=== PATIENT | male | born 1960 | race Caucasian/White ===

== ENCOUNTER → 2022-04-21 | Outpatient (CLI) | payer OTHER | LOC: ORTHO 09:40 | PROVIDERS: ATTEND Orthopaedic Surgery | DX: M17.11 Unilateral primary osteoarthritis, right knee (principal) | CPT/HCPCS: 99203 ==

== ENCOUNTER → 2022-05-12 | Outpatient (CLI) | payer SELFPAY ==
[~2022-05-12] VITALS: Ht 165.1 cm; Wt 68.2 kg
== END ==
LOC: PREOP 08:10
PROVIDERS: ATTEND Orthopaedic Surgery
DX: Z01.810 Encounter for preprocedural cardiovascular examination (principal); Z01.812 Encounter for preprocedural laboratory examination; M17.11 Unilateral primary osteoarthritis, right knee
CPT/HCPCS: 87081; 93005

== ENCOUNTER → 2022-05-12 | Outpatient (CLI) | payer OTHER ==
[2022-05-12 09:26] LABS: BILIRUBIN,URINE NEGATIVE (NEGATIVE); CLARITY,URINE CLEAR; COLOR,URINE YELLOW; GLUCOSE, URINE (UA) NEGATIVE (NEGATIVE); KETONES,URINE NEGATIVE (NEGATIVE); LEUKOCYTE ESTERASE ,URINE NEGATIVE (NEGATIVE); NITRITE,URINE NEGATIVE (NEGATIVE); PROTEIN,URINE NEGATIVE (NEGATIVE)
[2022-05-12 09:32] LABS: BASOPHILS % (AUTO) 1 % (0-10); EOSINOPHILS # (AUTO) 0.1 10^3/uL (0.0-0.3); EOSINOPHILS % (AUTO) 1 % (0-10); HEMATOCRIT 41 % (40-54); HEMOGLOBIN 14.1 g/dL (13.3-17.7); LYMPHOCYTES # (AUTO) 2.3 10^3/uL (1.0-4.0); LYMPHOCYTES % (AUTO) 29 % (12-44); MEAN CORPUSCULAR HEMOGLOBIN 31 pg (25-34); MEAN CORPUSCULAR HGB CONC 34 g/dL (32-36); MEAN CORPUSCULAR VOLUME 90 fL (80-99); MEAN PLATELET VOLUME 9.9 fL (9.0-12.2); MONOCYTES # (AUTO) 0.7 10^3/uL (0.0-1.0); MONOCYTES % (AUTO) 9 % (0-12); NEUTROPHILS # (AUTO) 4.7 10^3/uL (1.8-7.8); NEUTROPHILS % (AUTO) 60 % (42-75); PLATELET COUNT 202 10^3/uL (130-400); WHITE BLOOD COUNT 7.8 10^3/uL (4.3-11.0)
[2022-05-12 09:49] LABS: BACTERIA,URINE NEGATIVE /HPF
[2022-05-12 09:53] LABS: CALCIUM 9.1 MG/DL (8.5-10.1); CREATININE SERUM 0.82 MG/DL (0.60-1.30); POTASSIUM 3.9 MMOL/L (3.6-5.0)
--- NOTE | 2022-05-12 13:34 | Diagnostic Imaging Report ---
Indication: Preop for knee surgery PA and lateral chest obtained at 0934 a.m. Heart and mediastinal silhouette are normal appearance. The lungs are clear. There is no pneumothorax or pleural fluid. IMPRESSION: Negative chest. Dictated by: Dictated on workstation # [id number]
--- NOTE | 2022-05-12 14:41 | Diagnostic Imaging Report ---
Indication: Osteoarthritis AP and lateral views of the right knee are obtained. There is no acute fracture. There is advanced degenerative change of the medial compartment of the right knee with severe joint space narrowing and osteophyte formation. There is prominent patellofemoral spurring and joint space there. The lateral compartment appears preserved. There is no joint effusion. IMPRESSION: Advanced degenerative changes of the right knee as above with no acute abnormality. Findings are most severe in the medial compartment. Dictated by: Dictated on workstation # [id number]
== END ==
LOC: ORTHO 08:54
PROVIDERS: ATTEND Orthopaedic Surgery
DX: Z01.818 Encounter for other preprocedural examination (principal); M17.11 Unilateral primary osteoarthritis, right knee
CPT/HCPCS: 36415; 71046; 73560; 80048; 81000; 85025

== ENCOUNTER 2022-05-18 06:58 | Day surgery (SDC) | payer OTHER ==
[2022-05-18] VITALS (10 sets, daily range): BP systolic 91–133; BP diastolic 67–96
[~2022-05-18] VITALS: Ht 165.1 cm; Wt 68.2 kg
[2022-05-18] MEDS ORDERED: HYDROmorphone 2 MG/ML VIAL (DILAUDID) IV ONE (07:15)
[2022-05-18] MEDS ORDERED: morphine INJ 10 MG/ML 1ML (SYR OR VIAL) IVP ONE (07:15)
[2022-05-18] MEDS ORDERED: ceFAZolin INJECTION 1,000 MG in NS (IVPB) 50 ML IV ONE (07:15)
[2022-05-18] MEDS ORDERED: ONDANSETRON 4 MG/2 ML (SDV) Z0FRAN IVP PRN (07:15)
[2022-05-18] MEDS ORDERED: PROPOFOL INJECTION 50 ML IV ONE (07:18)
[2022-05-18] MEDS ORDERED: MIDAZOLAM 2 MG/2 ML (VERSED) VIAL ONE ×2 (07:23→09:23)
--- NOTE | 2022-05-18 07:24 | Progress Note-Pre Operative ---
Pre-Operative Progress Note Date of Available H&P: Apr 21, 2022 Date H&P Reviewed: May 18, 2022 Time H&P Reviewed: 07:15 History & Physical: H&P Reviewed, Patient Examed, No changes noted Pre-Operative Diagnosis: Right Knee Primary Osteoarthritis MIKE MAK MD May 18, 2022 07:24
[2022-05-18] MEDS: LACTATED RINGERS 1,000 ML IV PRN ×2 (07:31→08:01)
[2022-05-18] MEDS ORDERED: fentaNYL INJ 100 MCG/2 ML AMP ONE (07:33)
[2022-05-18] MEDS ORDERED: SODIUM CHLORIDE 0.9% IRRIGATIO 150 ML, TRANEXAMIC ACID INJECTION 3,000 MG IR ONE ×2 (08:00)
[2022-05-18] MEDS ORDERED: proPOfol 200 MG/20 ML (DIPRIVAN) VIAL IV ONE (09:18)
--- NOTE | 2022-05-18 10:50 | Operative Report - Ortho ---
Operative Report Surgeon (s)/Crown Blocker (s) Surgeon MIKE MAK MD Crown Blocker n/a Pre-Operative Diagnosis Right Knee Primary Osteoarthritis Post-Operative Diagnosis same Operative Report Date of Procedure: May 18, 2022 Name of Procedure Performed: Right Total Knee Arthroplasty Description & Findings After obtaining informed consent and marking the patient in the preoperative holding area, the patient did receive IV antibiotics. Patient was taken to the operating room and anesthesia was induced. Surgical timeout was taken. The right lower extremity was prepped and draped in the usual sterile fashion. Incision was made and carried down to fascia. Arthrotomy was performed on the medial side of the patella. Patella was retracted laterally and knee was flexed. Found to have circumferential osteophtye around the distal femur as well as exposed bone in the medial compartment. Hole was made in the distal femur for the intramedullary distal femoral cutting guide. Resection was made then the femur was sized as a 5. 4-in-1 block for a size [address]. Anterior cut was made and there was no notch. Posterior cut was made followed by the chamfers. Box cut was performed. Lug holes were drilled. Attention was turned to the tibial side, extramedullary tibial guide was put into place and aligned with the tibial crest. It was set to take 2 mm off of the affected medial side. Drop shira was used to confirm alignment. Resection was made and was parallel to the joint line. Tibial bone block was removed. [place]ina ladies' locker room attendant was put into place and the menisci and posterior osteophytes were removed. The knee was trialed with a size 5 femur and a size 5 tibia with a 9 mm poly trial. It was found to come out to full extension and flexed beyond 120 degrees. It was stable to varus and valgus stress throughout its range of motion. This was accepted. Knee was brought out into extension and the patella was prepared for an inset patellar button. Osteophytes were removed from around the perimeter of the patella. Patellar trial was put into place and tracked well. Trial implants were removed. Tibial tray was pinned and punched. The cut bone surfaces were lavaged with pulsatile normal saline. Implants were opened and assembled on the back table. Cement was mixed. Cement was applied to the cut bone surface as well as the implant surface. A size 5 tibial component was impacted into placed and excess cement was removed using a [place]. A size 5 femoral component was impacted into place and excess cement was removed using a [place]us. Tibial tray was lavaged with saline. A 9 mm thick polyethylene component was locked into placed and the locking mechanism was checked. Knee was brought into extension. Patellar component was cemented in to place and excess cement was removed from the perimeter. The knee was irrigated with normal saline. Irrigation was removed and tranexamic acid was placed. A dilute betadine soak was performed followed by irrigation of the knee. Once the cement had set, the knee was once again trialed; found to come to full extension, flexed beyond 120 degrees, and was stable to varus and valgus stress. Further tranexamic acid was applied for hemostasis. Tourniquet was dropped and electrocautery was used for further hemostasis. Fascial layer was closed with #2 Stratafix. The subcutaneous layer was closed with 2-0 Vicryl. The skin was closed with 3-0 v-loc. Wound was dressed with steri-strips, xeroform, 4x4s, ABD, webril, and AJ wrap. Patient tolerated the procedure well and was stable to the recovery room. Anesthesia Type Spinal Estimated Blood Loss 150 mL Specimen(s) collected/removed None MIKE MAK MD May 18, 2022 10:49
[2022-05-18] MEDS ORDERED: BISACODYL 5 MG (DULCOLAX) TABLET PO PRN (11:00)
[2022-05-18] MEDS ORDERED: ONDANSETRON 4 MG/2 ML (SDV) Z0FRAN IV PRN (11:00)
[2022-05-18] MEDS ORDERED: ACETAMINOPHEN 500 MG TAB (TYLENOL) PO PRN (11:00)
[2022-05-18] MEDS ORDERED: morphine INJ 4 MG/ML 1 ML (VIAL/SYRINGE) IVP PRN (11:00)
[2022-05-18] MEDS ORDERED: MILK OF MAGNESIA 400 MG/5 ML 30 ML UDC PO PRN (11:00)
--- NOTE | 2022-05-18 11:50 | Diagnostic Imaging Report ---
CLINICAL INDICATION: Postop arthroplasty of the right knee. EXAM: X-ray of the right knee, AP and cross-table lateral views. COMPARISON: X-ray of the right knee dated 05/12/2022. FINDINGS: There is interval placement of right total knee arthroplasty with components in good position. There is air overlying the right knee joint space region and soft tissue. There is a compressive device overlying the right knee region. IMPRESSION: Interval postoperative changes with right total knee arthroplasty with components in good position. There is no unexpected radiodense foreign object. Dictated by: Dictated on workstation # [id number]
--- NOTE | 2022-05-18 13:23 | Physical Therapy Evaluation ---
PT Evaluation-General Medical Diagnosis Admission Date May 18, 2022 at 07:00 Medical Diagnosis: right knee osteoarthritis Onset Date: May 18, 2022 Therapy Diagnosis Therapy Diagnosis: debility Precautions Precautions/Isolations: Standard Precautions Weight Bear Status Right Lower Extremity: Right Weight Bearing/Tolerated Left Lower Extremity: Left Full Weight Bearing Referral Physician: Cole Reason for Referral: Evaluation/Treatment Medical History Current History s/p elective right TKR Reviewed History: Yes Social History Home: Single Level Current Living Status: Spouse Entry Into Home: Level Entry Prior Prior Level of Function SCALE: Activities may be completed with or without assistive devices. 8-Xhnkjqzshj-afadccq completes the activity by him/herself with no assistance from a helper. 5-Set-up or Clean-up Assistance-helper sets up or cleans up; patient completes activity. [place] assists only prior to or following the activity. 4-Supervision or Touching Assistance-helper provides verbal cues and/or touching/steadying and/or contact guard assistance as patient completes activity. Assistance may be provided throughout the activity or intermittently. 3-Partial/Moderate Assistance-helper does LESS THAN HALF the effort. [place] lifts, holds or supports trunk or limbs, but provides less than half the effort. 2-Substantial/Maximal Assistance-helper does MORE THAN HALF the effort. [place] lifts or holds trunk or limbs and provides more than half the effort. 3-Lmxedboxp-yqbhic does ALL the effort. Patient does none of the effort to complete the activity. Or, the assistance of 2 or more helpers is required for the patient to complete the activity. If activity was not attempted, code reason: 7-Patient Refused. 9-Not Applicable-not attempted and the patient did not perform the activity before the current illness, exacerbation or injury. 10-Not Attempted due to Environmental Limitations-(lack of equipment, weather restraints, etc.). 88-Not Attempted due to Medical Conditions or Safety Concerns. Bed Mobility: 6 Transfers (B,C,W/C): 6 Gait: 6 Stairs: 6 Indoor Mobility (Ambulation): Independent Stairs: Independent Prior Devices Use: None PT Evaluation-Current Subjective Patient agrees to PT. Pain Numeric Pain Scale: 5-Moderate Pain Location: Right Location Body Site: Knee Pain Description: Acute Objective Patient Orientation: Normal For Age Attachments: IV ROM/Strength ROM Lower Extremities right knee flexion 80 degrees AROM/5 degrees extension left LE WFL Strength Lower Extremities left LE 5/5 grossly ; right LE 3+/5 grossly Integumentary/Posture Bowel Incontinence: No Bladder Incontinence: No Posture WFL Neuromuscular (Tone, Coordination, Reflexes) grossly intact Sensory Vision: Functional Hearing: Functional Transfers Lying to Sitting/Side of Bed(Q: 6 Sit to Stand (QC): 4 Chair/Bsx-rt-Pnkrf Xfer(QC): 4 Gait Mode of Locomotion: Walk Anticipated Mode of Locomotion: Walk Walk 10 feet (QC): 4 Gait Assistive Device: FWW Balance Sitting Static: Normal Sitting Dynamic: Normal Standing Static: Fair Standing Dynamic: Fair Assessment/Needs Patient will benefit from skilled PT to address functional strength and mobility to improve current LOF. Patient lives independently with spouse and kids. Rehab Potential: Good PT Cattle Sticker Goals Cattle Sticker Goals PT Cattle Sticker Goals Time Frame: May 23, 2022 Roll Left & Right (QC): 6 Sit to Lying (QC): 6 Lying-Sitting on Side/Bed(QC): 6 Sit to Stand (QC): 6 Chair/Pry-pq-Vdzmb Xfer(QC): 6 Toilet Transfer (QC): 6 Car Transfer (QC): 6 Does the Patient Walk: Yes Walk 10 feet (QC): 6 Walk 50ft with 2 Turns (QC): 6 Walk 150 ft (QC): 6 PT Plan Treatment/Plan Treatment Plan: Continue Plan of Care Treatment Plan: Education, Functional Activity Bernabe, Functional Strength, Gait, Safety, Therapeutic Exercise, Transfers Treatment Duration: May 23, 2022 Frequency: 11 times per week Estimated Hrs Per Day: .5 hour per day Patient and/or Family Agrees t: Yes Time Time In: 1258 Time Out: 1312 DATE: May 18, 2022 Total Billed Treatment Time: 14 Total Billed Treatment 1 visit EVMod 14 min NICOLA KELLEY PT May 18, 2022 13:23
[2022-05-18] MEDS: NS IV 1000 ML 1,000 ML IV SCH ×2 (13:38→21:27)
[2022-05-18] MEDS: ASPIRIN E.C. 81 MG (ECOTRIN) TAB PO SCH (17:42)
[2022-05-18] MEDS: DOCUSATE SODIUM 100 MG (COLACE) CAP PO SCH (20:24)
[2022-05-18] MEDS: ceFAZolin INJECTION 1,000 MG in NS (IVPB) 50 ML IV SCH (20:24)
[2022-05-18] MEDS: CELECOXIB 100 MG (CeleBREX) CAP PO SCH (20:24)
[2022-05-19] VITALS (7 sets, daily range): BP systolic 117–158; BP diastolic 75–92
[2022-05-19] MEDS: MULTIVIT W/MINERALS TAB (THERAGRAN M) PO SCH (06:00)
[2022-05-19] MEDS: ceFAZolin INJECTION 1,000 MG in NS (IVPB) 50 ML IV SCH (06:00)
[2022-05-19 06:42] LABS: HEMOGLOBIN 12.8 g/dL (13.3-17.7)
[2022-05-19] MEDS: ASPIRIN E.C. 81 MG (ECOTRIN) TAB PO SCH ×2 (08:42→17:31)
[2022-05-19] MEDS: DOCUSATE SODIUM 100 MG (COLACE) CAP PO SCH ×2 (08:42→20:37)
[2022-05-19] MEDS: CELECOXIB 100 MG (CeleBREX) CAP PO SCH ×2 (08:42→20:38)
--- NOTE | 2022-05-19 08:58 | Progress Note - Ortho ---
Progress Note Subjective Date of Exam 05/19/22 Chief Complaint POD #1 R TKA HPI/Events since last exam Doing well, some issues with tightness/pain, mobilizing well with therapy Review of Systems - Allergies: Coded Allergies: No Known Drug Allergies (Unverified , 05/12/22) Home Meds No Active Prescriptions or Reported Meds Objective Exam Right Knee: Dressing C/D/I, +DF of ankle, no s/s of DVT Vital Signs Vital Signs Date Time Temp Pulse Resp B/P (MAP) Pulse Ox O2 Delivery O2 Flow Rate FiO2 05/19/22 07:35 37.1 72 18 158/92 (114) 95 Room Air 05/19/22 03:44 37.1 78 20 117/75 (89) 96 Room Air 05/18/22 23:56 37.3 72 20 106/70 (82) 95 Room Air 05/18/22 20:20 Room Air 05/18/22 20:09 37.5 76 16 104/70 (81) 93 Room Air 05/18/22 16:15 36.3 74 16 111/73 (86) 96 Room Air 05/18/22 11:35 Room Air 05/18/22 11:35 Room Air 05/18/22 11:30 Room Air 05/18/22 11:30 36.5 20 118/81 (93) 96 Room Air 05/18/22 11:20 20 110/84 (93) 100 Room Air 05/18/22 11:15 Room Air 05/18/22 11:10 20 112/79 (90) 97 Room Air 05/18/22 11:00 Room Air 05/18/22 11:00 20 101/81 (88) 100 Room Air 05/18/22 10:50 20 96/73 (81) 100 Nasal Cannula 2.00 05/18/22 10:45 Nasal Cannula 2.00 05/18/22 10:40 36.5 20 91/67 (75) 100 Nasal Cannula 2.00 05/18/22 10:40 Nasal Cannula 2.00 I & O 05/19/22 07:00 Intake Total 2640 ml Output Total 1900 ml Balance 740 ml Lab Results Laboratory Tests 05/19/22 06:00: Hemoglobin 12.8L, Hematocrit 37L Microbiology 05/18/22 MRSA Screen - Final, Complete MRSA not isolated Imaging 2 postop views of the right knee dated 05/18/22 were reviewed from PACS and demonstrated total knee with components in good position, some residual osteophyte on medial side Assessment and Plan Assessment Right Knee Primary Osteoarthritis s/p R TKA Problem List Right Knee Primary Osteoarthritis s/p R TKA Plan PT/OT DVT Prophylaxis Pain control--will add muscle relaxant Home tomorrow Final Diagonsis Right Knee Primary Osteoarthritis s/p R TKA Level of the visit: Level 3 (postop global) MIKE MAK MD May 19, 2022 08:58
--- NOTE | 2022-05-19 10:30 | Physical Therapy Daily Note ---
PT Daily Note-Current Subjective Patient is up independently in room. Spouse present. Pain Numeric Pain Scale: 5-Moderate Pain Location: Right Location Body Site: Knee Pain Description: Acute Section J - Health Conditions 1. Rarely or not at all 2. Occasionally 3. Frequently 4. Almost constantly 8. Unable to answer Pain Effect on Sleep: 2 Pain Interference with Therapy: 2 Pain Interference w/Day-to-Day: 2 Mental Status Patient Orientation: Normal For Age Transfers SCALE: Activities may be completed with or without assistive devices. 0-Irxgdunume-jujdgau completes the activity by him/herself with no assistance from a helper. 5-Set-up or Clean-up Assistance-helper sets up or cleans up; patient completes activity. [place] assists only prior to or following the activity. 4-Supervision or Touching Assistance-helper provides verbal cues and/or touchi ng/steadying and/or contact guard assistance as patient completes activity. Assistance may be provided throughout the activity or intermittently. 3-Partial/Moderate Assistance-helper does LESS THAN HALF the effort. [place] lifts, holds or supports trunk or limbs, but provides less than half the effort. 2-Substantial/Maximal Assistance-helper does MORE THAN HALF the effort. [place] lifts or holds trunk or limbs and provides more than half the effort. 5-Xtxzerxgy-pfkqpg does ALL the effort. Patient does none of the effort to complete the activity. Or, the assistance of 2 or more helpers is required for the patient to complete the activity. If activity was not attempted, code reason: 7-Patient Refused. 9-Not Applicable-not attempted and the patient did not perform the activity before the current illness, exacerbation or injury. 10-Not Attempted due to Environmental Limitations-(lack of equipment, weather restraints, etc.). 88-Not Attempted due to Medical Conditions or Safety Concerns. Sit to Lying (QC): 6 Lying to Sitting/Side of Bed(Q: 6 Sit to Stand (QC): 6 Chair/Mse-dk-Izcrj Xfer(QC): 6 Toilet Transfer (QC): 6 Weight Bearing Right Lower Extremity: Right Weight Bearing/Tolerated Left Lower Extremity: Left Full Weight Bearing Gait Training Distance: >300' Walk 10 feet (QC): 6 Walk 50 ft with 2 Turns(QC): 6 Walk 150 ft (QC): 6 Gait Assistive Device: FWW VC's for gait sequence and heel-toe reciprocal pattern Exercises Supine Ex: Ankle pumps, Quad Set, Heel Slides, Straight leg raise Supine Reps: 12 Seated Therapy Exercises: Long arc quads Seated Reps: 15 Assessment PT instructed patient, family and nursing for patient to be ad sally in hallway. All voice understanding. Plan dismissal tomorrow after PT per physician. PT Mcc Goals Mcc Goals PT Mcc Goals Time Frame: May 23, 2022 Roll Left & Right (QC): 6 Sit to Lying (QC): 6 Lying-Sitting on Side/Bed(QC): 6 Sit to Stand (QC): 6 Chair/Jej-th-Creck Xfer(QC): 6 Toilet Transfer (QC): 6 Car Transfer (QC): 6 Does the Patient Walk: Yes Walk 10 feet (QC): 6 Walk 50ft with 2 Turns (QC): 6 Walk 150 ft (QC): 6 PT Plan Treatment/Plan Treatment Plan: Continue Plan of Care Treatment Plan: Education, Functional Activity Bernabe, Functional Strength, Gait, Safety, Therapeutic Exercise, Transfers Treatment Duration: May 23, 2022 Frequency: 11 times per week Estimated Hrs Per Day: .5 hour per day Patient and/or Family Agrees t: Yes Time Time In: 818 Time Out: 841 DATE: May 19, 2022 Total Billed Treatment Time: 23 Total Billed Treatment 1 visit EX 14 min GT 9 min NICOLA KELLEY PT May 19, 2022 10:30
--- NOTE | 2022-05-19 11:19 | Occ Therapy Progress Note ---
Therapy Progress Note OT orders received and chart reviewed. OT visited with pt about purpose/benefit of OT, he verbalized understanding. Per PT, pt is currently up ad sally in his room. Pt indicates he has completed toileting independently and has no concerns with his ability to complete ADLs upon returning home. If he has any difficulties, he has family who can assist. Pt declines further OT services at this time. D/C from OT. 1, visit 1100 ARTHUR FABIAN OT May 19, 2022 11:19
[2022-05-19] MEDS: CYCLOBENZAPRINE 10 MG (FLEXERIL) TAB PO PRN ×2 (11:27→17:31)
--- NOTE | 2022-05-19 14:05 | Physical Therapy Daily Note ---
PT Daily Note-Current Subjective Patient agrees to PT. Spouse present. Pain Section J - Health Conditions 1. Rarely or not at all 2. Occasionally 3. Frequently 4. Almost constantly 8. Unable to answer Pain Effect on Sleep: 2 Pain Interference with Therapy: 2 Pain Interference w/Day-to-Day: 2 Mental Status Patient Orientation: Normal For Age Transfers SCALE: Activities may be completed with or without assistive devices. 2-Fdyhalrfgu-nycvshg completes the activity by him/herself with no assistance from a helper. 5-Set-up or Clean-up Assistance-helper sets up or cleans up; patient completes activity. [place] assists only prior to or following the activity. 4-Supervision or Touching Assistance-helper provides verbal cues and/or touching/steadying and/or contact guard assistance as patient completes activity. Assistance may be provided throughout the activity or intermittently. 3-Partial/Moderate Assistance-helper does LESS THAN HALF the effort. [place] lifts, holds or supports trunk or limbs, but provides less than half the effort. 2-Substantial/Maximal Assistance-helper does MORE THAN HALF the effort. [place] lifts or holds trunk or limbs and provides more than half the effort. 3-Auqfgstwp-bzzvdn does ALL the effort. Patient does none of the effort to complete the activity. Or, the assistance of 2 or more helpers is required for the patient to complete the activity. If activity was not attempted, code reason: 7-Patient Refused. 9-Not Applicable-not attempted and the patient did not perform the activity before the current illness, exacerbation or injury. 10-Not Attempted due to Environmental Limitations-(lack of equipment, weather restraints, etc.). 88-Not Attempted due to Medical Conditions or Safety Concerns. Sit to Lying (QC): 6 Lying to Sitting/Side of Bed(Q: 6 Sit to Stand (QC): 6 Weight Bearing Right Lower Extremity: Right Weight Bearing/Tolerated Left Lower Extremity: Left Full Weight Bearing Gait Training Distance: 400' Walk 10 feet (QC): 6 Walk 50 ft with 2 Turns(QC): 6 Walk 150 ft (QC): 6 Gait Assistive Device: FWW slow, reciprocal pattern/VC's for gait sequence to flex knee Exercises Supine Ex: Ankle pumps, Quad Set, Heel Slides, Straight leg raise Supine Reps: 15 Seated Therapy Exercises: Long arc quads Seated Reps: 15 Assessment Patient progressing with treatment plan and will dismiss to home tomorrow. Education with patient and spouse on HEP to perform 3/day. PT Histotechnologist Supervisor Goals Longterm Goals PT Histotechnologist Supervisor Goals Time Frame: May 23, 2022 Roll Left & Right (QC): 6 Sit to Lying (QC): 6 Lying-Sitting on Side/Bed(QC): 6 Sit to Stand (QC): 6 Chair/Jnj-ac-Coltn Xfer(QC): 6 Toilet Transfer (QC): 6 Car Transfer (QC): 6 Does the Patient Walk: Yes Walk 10 feet (QC): 6 Walk 50ft with 2 Turns (QC): 6 Walk 150 ft (QC): 6 PT Plan Treatment/Plan Treatment Plan: Continue Plan of Care Treatment Plan: Education, Functional Activity Bernabe, Functional Strength, Gait, Safety, Therapeutic Exercise, Transfers Treatment Duration: May 23, 2022 Frequency: 11 times per week Estimated Hrs Per Day: .5 hour per day Patient and/or Family Agrees t: Yes Time Time In: 1331 Time Out: 1355 DATE: May 19, 2022 Total Billed Treatment Time: 24 Total Billed Treatment 1 visit EX 14 min GT 10 min NICOLA KELLEY PT May 19, 2022 14:05
--- NOTE | 2022-05-19 14:11 | Anesthesia-General Post-Op ---
General Patient Condition Mental Status/LOC: Same as Preop Cardiovascular: Satisfactory Nausea/Vomiting: Absent Respiratory: Satisfactory Pain: Controlled Complications: Absent Post Op Complications Complications None Follow Up Care/Instructions Patient Instructions None needed. Anesthesia/Patient Condition Patient Condition Patient is doing well, no complaints, stable vital signs, no apparent adverse anesthesia problems. No complications reported per nursing. MIKE ENG CRNA May 19, 2022 14:11
[2022-05-20 03:27] VITALS: BP 137/82
[2022-05-20 05:43] LABS: HEMOGLOBIN 12.5 g/dL (13.3-17.7)
[2022-05-20] MEDS: MULTIVIT W/MINERALS TAB (THERAGRAN M) PO SCH (06:26)
[2022-05-20] MEDS: CYCLOBENZAPRINE 10 MG (FLEXERIL) TAB PO PRN (06:26)
[2022-05-20 07:26] VITALS: BP 140/91
[2022-05-20] MEDS: ASPIRIN E.C. 81 MG (ECOTRIN) TAB PO SCH (08:36)
[2022-05-20] MEDS: DOCUSATE SODIUM 100 MG (COLACE) CAP PO SCH (08:36)
[2022-05-20] MEDS: CELECOXIB 100 MG (CeleBREX) CAP PO SCH (08:36)
[2022-05-20] MEDS ORDERED: OXC5T PO (09:10)
[2022-05-20] MEDS ORDERED: ASPI-1238 PO (09:10)
[2022-05-20] MEDS ORDERED: CYCL10TA25 PO (09:10)
--- NOTE | 2022-05-20 09:13 | Discharge Summary ---
Discharge Summary Hospital Course Hospital Course Date of Admission: May 18, 2022 at 07:00 Admission Diagnosis : Right Knee Primary Osteoarthritis Family Physician/Provider: Date of Discharge: 05/20/22 Discharge Diagnosis: [ Right Knee Primary Osteoarthritis s/p TKA] Hospital Course: [Admitted on 05/18/22 and went to the operating room for right TKA. Tolerated the procedure well and was transferred to the regular floor. On the day of surgery, he was started on mechnical DVT prophylaxis and began in room therapy. On POD #1, he began chemical DVT prophylaxis and began to ambulate. Pain was controlled with oral medication. On POD #2, he was progressing well with therapy. Pain was controlled with oral medication and he was tolerating a regular diet. Discharge arrangements had been made. He was ready for discharge home. ] Labs and Pending Lab Test: Laboratory Tests 05/20/22 05:26: Hemoglobin 12.5L, Hematocrit 36L Microbiology 05/18/22 MRSA Screen - Final, Complete MRSA not isolated Home Meds Active Aspirin EC (Aspirin) 81 Mg Tablet.dr 81 Mg PO BID WITH MEALS 14 Days Cyclobenzaprine HCl 10 Mg Tablet 10 Mg PO TID PRN 7 Days Assessment/Pt Instructions WBAT on right leg, walker for assistance. Dry dressing daily to incision site. F/U on 06/09/[address] Galvan. Discharge Instructions Discharge Diet: Regular Diet Discharge Physical Examination Vital Signs Vital Signs Date Time Temp Pulse Resp B/P (MAP) Pulse Ox O2 Delivery O2 Flow Rate FiO2 05/20/22 07:26 36.3 96 18 140/91 (107) 95 05/20/22 03:27 Room Air 05/18/22 10:50 2.00 Extremity: Other (Right Knee: Incision C/D/I, blisters noted at ends of steri- strips, +DF of ankle, no s/s of DVT) Allergies: Coded Allergies: No Known Drug Allergies (Unverified , 05/12/22) Discharge Summary Date of Admission May 18, 2022 at 07:00 Date of Discharge MIKE GALAVN MD May 20, 2022 09:13
--- NOTE | 2022-05-20 09:43 | Physical Therapy Daily Note ---
PT Daily Note-Current Subjective Patient in recliner pre tx, agrees to PT, has no complaints of pain at rest. Pain Section J - Health Conditions 1. Rarely or not at all 2. Occasionally 3. Frequently 4. Almost constantly 8. Unable to answer Pain Effect on Sleep: 2 Pain Interference with Therapy: 2 Pain Interference w/Day-to-Day: 2 Appearance Patient in recliner post tx with nurse call, phone, tray, all needs met. Mental Status Patient Orientation: Person, Place, Situation Transfers SCALE: Activities may be completed with or without assistive devices. 6-Geiebirnbj-oncxmat completes the activity by him/herself with no assistance from a helper. 5-Set-up or Clean-up Assistance-helper sets up or cleans up; patient completes activity. [place] assists only prior to or following the activity. 4-Supervision or Touching Assistance-helper provides verbal cues and/or touching/steadying and/or contact guard assistance as patient completes activity. Assistance may be provided throughout the activity or intermittently. 3-Partial/Moderate Assistance-helper does LESS THAN HALF the effort. [place] lifts, holds or supports trunk or limbs, but provides less than half the effort. 2-Substantial/Maximal Assistance-helper does MORE THAN HALF the effort. [place] lifts or holds trunk or limbs and provides more than half the effort. 6-Vwaszjmox-gdcypw does ALL the effort. Patient does none of the effort to complete the activity. Or, the assistance of 2 or more helpers is required for the patient to complete the activity. If activity was not attempted, code reason: 7-Patient Refused. 9-Not Applicable-not attempted and the patient did not perform the activity before the current illness, exacerbation or injury. 10-Not Attempted due to Environmental Limitations-(lack of equipment, weather restraints, etc.). 88-Not Attempted due to Medical Conditions or Safety Concerns. Sit to Stand (QC): 6 Chair/Rmg-oq-Pgzrz Xfer(QC): 6 Weight Bearing Right Lower Extremity: Right Weight Bearing/Tolerated Left Lower Extremity: Left Full Weight Bearing Gait Training Distance: 500' Walk 10 feet (QC): 6 Walk 50 ft with 2 Turns(QC): 6 Walk 150 ft (QC): 6 Gait Assistive Device: FWW slow ambulation, good step through and foot clearance Exercises Supine Ex: Quad Set Supine Reps: 15 (done in recliner with legs elevated) Seated Therapy Exercises: Ankle pumps, Long arc quads, Hamstring Curls Seated Reps: 15 Treatments transfers, ambulation, ROM Assessment Current Status: Fair Progress good progress, independent with ambulation PT Alf Goals Alf Goals PT User Experience Researcher Goals Time Frame: May 23, 2022 Roll Left & Right (QC): 6 Sit to Lying (QC): 6 Lying-Sitting on Side/Bed(QC): 6 Sit to Stand (QC): 6 Chair/Zpd-fd-Ftino Xfer(QC): 6 Toilet Transfer (QC): 6 Car Transfer (QC): 6 Does the Patient Walk: Yes Walk 10 feet (QC): 6 Walk 50ft with 2 Turns (QC): 6 Walk 150 ft (QC): 6 PT Plan Problem List Problem List: Activity Tolerance, Functional Strength, Safety, Balance, Gait, Transfer, ROM Treatment/Plan Treatment Plan: Continue Plan of Care Treatment Plan: Education, Functional Activity Bernabe, Functional Strength, Gait, Safety, Therapeutic Exercise, Transfers Treatment Duration: May 23, 2022 Frequency: 11 times per week Estimated Hrs Per Day: .5 hour per day Patient and/or Family Agrees t: Yes Safety Risks/Education Patient Education: Gait Training, Transfer Techniques, Correct Positioning, Safety Issues Teaching Recipient: Patient Teaching Methods: Demonstration, Discussion Response to Teaching: Reinforcement Needed Time Time In: 918 Time Out: 929 DATE: May 20, 2022 Total Billed Treatment Time: 11 Total Billed Treatment 1 visit FA 11' TOM WOLF PT May 20, 2022 09:43
== END 2022-05-20 13:07 | disposition home or self-care (01) ==
LOC: SDC 06:58 → SURG 07:00 → UNDOADMIN 07:00 → EDSTATUS 09:40 → SURG 11:35 → 4TH 11:35 → SDC 05-20 13:07 → UNDODISIN 05-20 13:07
PROVIDERS: ATTEND Orthopaedic Surgery
DX: M17.11 Unilateral primary osteoarthritis, right knee (principal)
CPT/HCPCS: 27447; 73560; 85014 ×2; 85018 ×2; 87081; 97110; 97116; 97162; 97530; C1713 ×2; C1776 ×4; 36415

== ENCOUNTER → 2022-06-09 | Outpatient (CLI) | payer OTHER ==
[~2022-06-09] MED LIST: ASPI-1238 PO; CYCL10TA25 PO; OXC5T PO
== END ==
LOC: ORTHO 14:35
PROVIDERS: ATTEND Orthopaedic Surgery
DX: Z09 Encounter for follow-up examination after completed treatment for conditions other than malignant neoplasm (principal)

== ENCOUNTER → 2022-07-01 | Outpatient (CLI) | payer OTHER ==
--- NOTE | 2022-07-01 09:16 | Diagnostic Imaging Report ---
INDICATION: Post surgical followup. COMPARISON: 05/18/2022. TECHNIQUE: Two radiographs of the right knee dated 07/01/2022. FINDINGS: Right total knee arthroplasty is again identified. No evidence of hardware complication. No acute fracture or dislocation. No destructive osseous process. No suspicious radiopaque foreign body. Phleboliths are present. IMPRESSION: Right total knee arthroplasty without hardware complication or acute osseous abnormality. Dictated by: Dictated on workstation # [id number]
== END ==
LOC: ORTHO 08:56
PROVIDERS: ATTEND Orthopaedic Surgery
DX: Z47.89 Encounter for other orthopedic aftercare (principal); Z96.651 Presence of right artificial knee joint
CPT/HCPCS: 73560

== ENCOUNTER → 2022-08-12 | Outpatient (CLI) | payer OTHER | LOC: ORTHO 08:52 | PROVIDERS: ATTEND Orthopaedic Surgery | DX: Z47.89 Encounter for other orthopedic aftercare (principal) ==

== ENCOUNTER → 2023-04-15 | Outpatient (CLI) | payer SELFPAY ==
[~2023-04-15] MED LIST changes: +IOHEXOL 350 MG/ML 100 ML (OMNIPAQUE 350) VIAL IV ONE; +NS 100 ML (IVPB) BAG IV ONE
--- NOTE | 2023-04-15 09:07 | Diagnostic Imaging Report ---
PROCEDURE: CT abdomen and pelvis with and without contrast. TECHNIQUE: Precontrast acquisitions were acquired through the abdomen and pelvis. Multiple contiguous axial images were obtained through the abdomen and pelvis after the administration of intravenous contrast. Auto Exposure Controls were utilized during the CT exam to meet ALARA standards for radiation dose reduction. INDICATION: Acute prostatitis. No prior studies are available for comparison. The lung bases are clear. The liver and gallbladder are unremarkable. There is no biliary duct dilatation. Pancreas and spleen are unremarkable. No adrenal mass is detected. Small cortical low-attenuation lesions are noted in the right kidney, too small to characterize but likely cysts. There is marked bilateral hydroureteronephrosis. The dilated ureters are traced to the bladder which is distended and appears to be trabeculated. No definite renal or ureteral calculi are identified on the precontrast images. Delayed images do show a excretion of contrast in the right renal collecting system. The right renal collecting system and right ureter are opacified. There is some minimal pooling of contrast within the left sided dilated renal calyces but no significant ureteral contrast identified. Small amount of bladder contrast is present in the bladder base. There is some prostatic enlargement noted but no significant periprosthetic inflammatory changes are seen. No urinary tract mass is detected. Aorta is nonaneurysmal. Bowel loops are nonobstructed. There is no ascites. There is a fat-containing left inguinal hernia. Bony structures are nonacute. IMPRESSION: 1. There is marked bilateral hydroureteronephrosis. There is a bladder distention and bladder trabeculation as well as prostatomegaly. Findings may be owing to chronic bladder outlet obstruction. No urinary tract mass or calculus is identified. 2. Fat-containing left inguinal hernia. Dictated by: Dictated on workstation # [id number]
== END ==
LOC: RAD 07:27
PROVIDERS: ATTEND Specialist
DX: N13.30 Unspecified hydronephrosis (principal); K40.90 Unilateral inguinal hernia, without obstruction or gangrene, not specified as recurrent; N41.0 Acute prostatitis
CPT/HCPCS: 74178